=== PATIENT | female | born 1975 | race Two or more races ===

== ENCOUNTER → 2022-06-26 13:27 | Outpatient (BNVA) | payer OTHER, SELFPAY | PROVIDERS: Visit Provider Physician Assistant | DX: S63.592A Other specified sprain of left wrist, initial encounter (principal); X50.1XXA Overexertion from prolonged static or awkward postures, initial encounter | CPT/HCPCS: 73110; 99204 ==

== ENCOUNTER → 2022-07-03 11:42 | Outpatient (BNVA) | payer OTHER, SELFPAY | PROVIDERS: Visit Provider Physician Assistant | DX: S69.92XD Unspecified injury of left wrist, hand and finger(s), subsequent encounter (principal); X50.1XXD Overexertion from prolonged static or awkward postures, subsequent encounter | CPT/HCPCS: 99214 ==

== ENCOUNTER → 2022-07-17 11:10 | Outpatient (BNVA) | payer OTHER, SELFPAY | PROVIDERS: Visit Provider Physician Assistant | DX: S63.592D Other specified sprain of left wrist, subsequent encounter (principal); X50.1XXD Overexertion from prolonged static or awkward postures, subsequent encounter | CPT/HCPCS: 99213 ==

== ENCOUNTER → 2022-07-31 12:51 | Outpatient (BNVA) | payer OTHER, SELFPAY | PROVIDERS: Visit Provider Physician Assistant | DX: S63.592D Other specified sprain of left wrist, subsequent encounter (principal); X50.1XXD Overexertion from prolonged static or awkward postures, subsequent encounter | CPT/HCPCS: 99213 ==

== ENCOUNTER → 2022-08-15 13:37 | Outpatient (BNVA) | payer OTHER, SELFPAY | PROVIDERS: Visit Provider Physician Assistant | DX: S63.592D Other specified sprain of left wrist, subsequent encounter (principal); X50.1XXD Overexertion from prolonged static or awkward postures, subsequent encounter | CPT/HCPCS: 99214 ==

== ENCOUNTER 2022-09-05 13:30 | Outpatient (RCR) | payer OTHER, SELFPAY ==
--- NOTE | 2022-07-18 14:38 | MHC.OT.EP ---
[address] [phone] Occupational Therapy Plan of Care Patient Name: Kaylan Franco Date of Evaluation: 07/18/22 Diagnosis: L WRIST INJURY Pain Location: L RADIAL WRIST MOSTLY PAINFREE AT REST 5-6/10 WITH USE, PULLING Pain Score: 0-6/10 Pain Scale Used: Numeric (0 - 10) Aggravating Factors: PULLING Alleviating Factors: MOTRIN, USING SPLINT FOR PAIN RELIEF HAS NOT TRIED HEAT/ICE Assessment: MS FRANCO INJURED HER NON DOMINANT L WRIST AT WORK 3.5 WEEKS AGO. XRAY SHOWS MILD SOFT TISSUE SWELLING. SHE HAS BEEN PROTECTING HER WRIST BY WEARING A PRE-RICH WRIST ORTHOSIS AND LIGHT DUTY AT WORK. SHE HAS A 5 LB LIFTING RESTRICTION FROM WORK CONNECTION. SHE STATES IT IS MOSTLY PAINFREE AT REST AND MODERATE PAIN WITH PULLING TASKS, INCLUDING MOPPING AND SWEEPING AT HOME. AN 80% LIMITATION IS REPORTED PER THE QUICK DASH ASSESSMENT. ONGOING SKILLED OT IS WARRANTED TO ADDRESS THE AREAS MENTIONED BELOW. Frequency and Duration: The patient will be seen 2X/WEEK FOR 4 WEEKS Short Term Goals: IND HEP IND JT PROTECTION AND ACTIVITY MODIFICATION IND USE OF HEAT/ICE L WRIST FLEX 55 DEGREES [facility] Goals: L GROSS GRASP >50 POUNDS TOLERATE LIFTING >20 POUNDS WITH PROPER BODY MECHANICS QUICK DASH <40% REPORT MILD DIFFICULTIES WITH IADLs WITH <3/10 PAIN Treatment Plan: Therapeutic Exercise Therapeutic Activity Home Exercise Program Splinting Neuro Re-ed Patient Education Desensitization/Sensory Re-ed Edema Control ADL Training Ultrasound NMES Iontophoresis Paraffin Fluidotherapy MHP Cold Packs Joint Mobilization Soft Tissue Mobilization Kinesiotaping Other (see comments) Electronically Signed By: YING JADE OTR/L Please Sign and return to therapist. Thank you once again for your referral.
--- NOTE | 2022-09-29 07:47 | MHC.OT.DC ---
[address] [phone] F: [phone] Occupational Therapy Discharge Note Patient Name: Kaylan Franco Provider: Marti Samuels Diagnosis: L WRIST INJURY Date of Evaluation: 07/18/22 Date of Discharge: 09/29/22 Treatments to Date: 12 Cancellations to Date: 2 No Shows to Date: 1 Discharge Status: Improved Function Independent with HEP Discharge Summary: MS FRANCO WAS PROGRESSING WELL WITH HER OT RX SESSIONS. HER PAIN WAS GRADUALLY IMPROVING AND SHE STATED PAINFREE AT REST AND 3/10 PAIN WITH WB ACTIVITIES. SHE REMAINED ON LIGHT DUTY AT WORK AND GRADUALLY INCREASING HER TOLERANCE TO IADLs AT HOME. SHE HAD WEANED FROM HER THUMB SPICA ORTHOSIS. ACCORDING TO EMR Pt UNABLE TO TOLERATE MRI ON 09/08/22. Pt IND WITH HEP AND WILL BE DISCHARGED TO A HOME MAINTENANCE PROGRAM. D/C OT SERVICES. Electronically Signed By: YING JADE OTR/L Reviewed/agree with student documentation: N/A Therapist: Please Sign and return to therapist, thank you for your referral.
== END 2022-09-29 07:45 | disposition home or self-care (01) ==
LOC: HO.OT 13:30
PROVIDERS: Visit Provider Physician Assistant
DX: S69.92XD Unspecified injury of left wrist, hand and finger(s), subsequent encounter (principal)
CPT/HCPCS: 97033; 97035; 97110; 97166; 97530

== ENCOUNTER 2022-09-08 08:03 | Outpatient (REF) | payer OTHER, SELFPAY ==
--- NOTE | ~2022-09-08 | MR_ITS ---
EXAMINATION: MRI WRIST WITHOUT CONTRAST, LEFT CLINICAL INFORMATION: Strain, snuffbox tenderness. COMPARISON: X-ray 06/26/2022 TECHNIQUE: MRI in a 1.5 Delmy magnet without contrast. Only limited axial T1 sequence obtained. The patient was claustrophobic, unable to continue. Structures not reliably evaluated on the limited single axial T1 sequence. Repeat MRI is recommended.
== END 2022-09-08 08:04 | disposition home or self-care (01) ==
LOC: HO.MRI 08:03
PROVIDERS: Visit Provider Internal Medicine
DX: M25.532 Pain in left wrist (principal)
CPT/HCPCS: 73221

== ENCOUNTER → 2022-09-11 13:23 | Outpatient (BNVA) | payer OTHER, SELFPAY | PROVIDERS: Visit Provider Physician Assistant | DX: S63.592D Other specified sprain of left wrist, subsequent encounter (principal); X50.1XXD Overexertion from prolonged static or awkward postures, subsequent encounter | CPT/HCPCS: 99213 ==

== ENCOUNTER → 2022-09-25 13:21 | Outpatient (BNVA) | payer OTHER, SELFPAY | PROVIDERS: Visit Provider Physician Assistant | DX: S63.592D Other specified sprain of left wrist, subsequent encounter (principal); X50.1XXD Overexertion from prolonged static or awkward postures, subsequent encounter | CPT/HCPCS: 99213 ==